=== PATIENT | male | born 2000 | race Caucasian/White ===

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

== ENCOUNTER 2023-02-28 11:47 | Emergency (ER) | payer OTHER ==
[~2023-02-28] VITALS: Ht 182.9 cm; Wt 99.2 kg
[2023-02-28 16:11] VITALS: BP 120/70; PULSE 61; RESP 16; TEMP 96.1; O2SAT 99
[2023-02-28] MEDS ORDERED: KETOROLAC TROMETH 30 MG/ML 1ML VIAL IM ONE (16:30)
[2023-02-28] MEDS ORDERED: ACETAMINOPHEN 500 MG TAB PO ONE (16:30)
[2023-02-28] MEDS ORDERED: IBUP1TAB5 PO (17:14)
== END 2023-02-28 17:16 | disposition home or self-care (01) ==
LOC: ER 11:47
DX: S67.22XA Crushing injury of left hand, initial encounter (principal); Z79.1 Long term (current) use of non-steroidal anti-inflammatories (NSAID); W22.8XXA Striking against or struck by other objects, initial encounter; Y93.89 Activity, other specified; Y92.89 Other specified places as the place of occurrence of the external cause; Y99.8 Other external cause status
CPT/HCPCS: 73120; 96372; 99283; J1885

== ENCOUNTER 2023-04-01 11:54 | Emergency (ER) | payer MEDICAID, OTHER ==
[~2023-04-01] VITALS: Ht 182.9 cm; Wt 98.0 kg
[~2023-04-01 11:54] MED LIST: IBUP1TAB5 PO
[2023-04-01 14:00] VITALS: BP 124/53; PULSE 52; RESP 18; TEMP 97.5; O2SAT 96
[2023-04-01] MEDS ORDERED: INDO50CA82 PO (14:03)
== END 2023-04-01 14:07 | disposition home or self-care (01) ==
LOC: ER 11:54
DX: N43.3 Hydrocele, unspecified (principal); Z79.1 Long term (current) use of non-steroidal anti-inflammatories (NSAID); Z79.899 Other long term (current) drug therapy
CPT/HCPCS: 76870